=== PATIENT | male | born 1990 | race Caucasian/White ===

== ENCOUNTER 2020-04-16 16:30 | Emergency (ER) | payer OTHER ==
[2020-04-16 16:44] VITALS: BMI 39.0
[2020-04-16] MEDS ORDERED: CASIRIVIMAB (REGN10933) 1,200 MG, IMDEVIMAB (REGN10987) 1,200 MG in SODIUM CHLORIDE 230 ML IVPB ONE (17:12)
[2020-04-16 18:05] LABS: BASO % 0.1 % (0-2.0); EOS % 0.1 % (0-4.5); HEMATOCRIT 45.3 % (35.4-49); HEMOGLOBIN 15.3 GM/dL (11.7-16.9); MCH 28.1 pg (25.7-33.7); MCHC 33.7 g/dl (32.0-35.9); MEAN CELL VOLUME 83.4 fl (80-96); MEAN PLT VOLUME 7.3 fl (7.5-11.1); MONO % 4.2 % (3.8-10.2); NEUT % 83.6 % (42.8-82.8); PLATELET COUNT 285 K/MM3 (134-434); RBC 5.43 M/mm3 (4.00-5.60); WHITE BLOOD COUNT 5.8 K/mm3 (4.0-10.0)
[2020-04-16 18:25] LABS: POTASSIUM 4.5 mmol/L (3.5-5.1)
[2020-04-16 18:27] LABS: ALBUMIN 4.5 g/dl (3.4-5.0); BLOOD UREA NITROGEN 15.1 mg/dL (7-18)
[2020-04-16 18:31] LABS: CREATININE 0.9 mg/dL (0.55-1.3)
[2020-04-16 18:32] LABS: BILIRUBIN,TOTAL 0.3 mg/dL (0.2-1)
[2020-04-16 18:53] VITALS: BP 129/82; PULSE 88; TEMP 97.8
== END 2020-04-16 22:29 | disposition home or self-care (01) ==
LOC: JER 16:30
PROC: 3E033NZ Introduction of Analgesics, Hypnotics, Sedatives into Peripheral Vein, Percutaneous Approach (ICD-10-PCS; principal; 2020-04-16)
DX: U07.1 COVID-19 (principal)
CPT/HCPCS: 36415; 80053; 85025; 99284-25; M0243; Q0243